=== PATIENT | female | born 1940 | race Caucasian/White ===

== ENCOUNTER 2017-02-27 11:29 | Observation (INO) | payer MEDICAID ==
[~2017-02-27] VITALS: Ht 170.2 cm; Wt 102.1 kg
[2017-02-27 12:06] LABS: Basophils # (auto) 0.1 uL; Eosinophils # (auto) 0 uL; Hemoglobin 10.5 g/dL (12.2-16.2); Lymphocytes # (auto) 1.3 uL; Mean Corpuscular Hemoglobin 18.8 pg (28.0-32.0); Monocytes # (auto) 0.6 uL; Neutrophils # (auto) 2.5 uL; Neutrophils % (auto) 55.8 % (37.0-80.0); Nucleated Red Blood Cells % 0.1 %; Red Blood Cells 5.58 10^6/uL (4.0-5.20); White Blood Cell 4.6 10^3/uL (4.4-10.8)
[2017-02-27 12:08] LABS: Basophils % (auto) 1.2 % (0.0-2.0); Eosinophils % (auto) 0.9 % (0.0-7.0); Hematocrit 32.7 % (36.0-46.0); Lymphocytes % (auto) 29.3 % (10.0-50.0); Mean Corpuscular Volume 58.7 fL (80.0-100.0); Monocytes % (auto) 12.8 % (0.0-12.0); Platelet Count (auto) 208 10^3/uL (140-450); Red Cell Distribution Width 19.5 % (11.8-14.3)
[2017-02-27 12:34] LABS: Albumin 3.4 g/dL (3.4-5.0); BUN/Creatinine Ratio 24.7; Bilirubin, Total 0.8 mg/dL (0.2-1.0); Calcium 8.6 mg/dL (8.5-10.1); Magnesium 2.3 mg/dL (1.6-2.6); Potassium 4.1 mmol/L (3.5-5.1); Total Protein 7.1 g/dL (6.4-8.2)
[2017-02-27] MEDS ORDERED: ASPirin 81 mg TAB PO ONE (17:15)
[2017-02-27 17:19] VITALS: BP 128/70
[2017-02-27 18:19] LABS: INR 0.91 (0.9-1.15); Partial Thromboplastin Time 23.7 sec (22.64-33.71); Prothrombin Time 9.9 sec (9.37-12.3)
== END 2017-02-27 19:01 | disposition home or self-care (01) | DRG 144 ==
LOC: ER 11:29 → OVERFLOW 17:18 → ER 18:59
PROVIDERS: ADMIT Family Medicine; ATTEND Family Medicine
DX: J20.9 Acute bronchitis, unspecified (principal); I10 Essential (primary) hypertension; J98.01 Acute bronchospasm; E78.5 Hyperlipidemia, unspecified; Z82.49 Family history of ischemic heart disease and other diseases of the circulatory system
CPT/HCPCS: 36415; 71045; 80053; 83735; 83880; 84443; 84484; 85025; 85610; 85730; 93005; 99285; G0378

== ENCOUNTER 2017-05-14 11:19 | Emergency (ER) | payer MEDICAID ==
[~2017-05-14] VITALS: Ht 170.2 cm; Wt 117.9 kg
[2017-05-14 12:16] VITALS: BP 168/77
[2017-05-14] MEDS ORDERED: IPRATROPIUM BROM 0.5 MG/2.5ML INH SOL NEB ONE (12:45)
[2017-05-14] MEDS ORDERED: ALBUTEROL SULF 2.5 MG/0.5ML(0.5%) NEB SOLN NEB ONE (12:45)
[2017-05-14] MEDS ORDERED: LORazepam 2MG/ML-1ML VIAL IM ONE (13:45)
== END 2017-05-14 13:59 | disposition home or self-care (01) ==
LOC: ER 11:19
DX: R05 Cough (principal); K44.9 Diaphragmatic hernia without obstruction or gangrene; I10 Essential (primary) hypertension; E78.5 Hyperlipidemia, unspecified
CPT/HCPCS: 71046; 94640; 96372; 99284; J2060